=== PATIENT | male | born 1945 | race Asian ===

== ENCOUNTER 2018-03-08 23:23 | Emergency (ER) | payer BC ==
[~2018-03-08] VITALS: Ht 175.3 cm; Wt 72.6 kg
[2018-03-09] MEDS ORDERED: NS IV 1000 ML 1,000 ML IV ONE ×2 (00:05→01:12)
[2018-03-09] MEDS ORDERED: FAMOTIDINE 20MG/2ML IV (PEPCID) IV STA (00:05)
[2018-03-09] MEDS ORDERED: ONDANSETRON 4 MG/2 ML (SDV) Z0FRAN IVP ONE (00:15)
--- NOTE | 2018-03-09 00:20 | NUR ---
PT REPORTS HE NEEDS TO USE THE RESTROOM. PT REFUSES BEDSIDE COMMODE WELL BEDPAN. PT MADE AWARE OF RISKS OF USING RESTROOM WITH NECK INJURY AND ACCEPTED RISKS EXPLAINED. PT ASSISTED TO RESTROOM VIA W/C BY THIS RN. A&OX4.
[2018-03-09 00:24] LABS: BASOPHILS % (AUTO) 0 % (0-10); EOSINOPHILS % (AUTO) 0 % (0-10); HEMATOCRIT 43 % (40-54); HEMOGLOBIN 15.3 G/DL (13.3-17.7); LYMPHOCYTES # (AUTO) 0.8 X 10^3 (1.0-4.0); LYMPHOCYTES % (AUTO) 11 % (12-44); MEAN CORPUSCULAR HEMOGLOBIN 31 PG (25-34); MEAN CORPUSCULAR HGB CONC 35 G/DL (32-36); MEAN CORPUSCULAR VOLUME 88 FL (80-99); MEAN PLATELET VOLUME 9.7 FL (7.4-10.4); MONOCYTES # (AUTO) 0.6 X 10^3 (0.0-1.0); MONOCYTES % (AUTO) 9 % (0-12); NEUTROPHILS # (AUTO) 5.2 X 10^3 (1.8-7.8); NEUTROPHILS % (AUTO) 79 % (42-75); PLATELET COUNT 276 10^3/uL (130-400); RED CELL DISTRIBUTION WIDTH 12.7 % (10.0-14.5); WHITE BLOOD COUNT 6.7 10^3/uL (4.3-11.0)
[2018-03-09 00:36] LABS: ALANINE AMINOTRANSFERASE 25 U/L (0-55); ALKALINE PHOSPHATASE 49 U/L (40-136); BILIRUBIN,TOTAL 0.6 MG/DL (0.1-1.0); BUN/CREATININE RATIO 18; CALCIUM 10.6 MG/DL (8.5-10.1); CARBON DIOXIDE 22 MMOL/L (21-32); CHLORIDE 91 MMOL/L (98-107); CREATININE SERUM 1.63 MG/DL (0.60-1.30); GFR ESTIMATED 42; GLUCOSE 236 MG/DL (70-105); LIPASE 53 U/L (8-78); MAGNESIUM 2.1 MG/DL (1.8-2.4); SODIUM 127 MMOL/L (135-145); TOTAL PROTEIN 8.8 GM/DL (6.4-8.2)
--- NOTE | 2018-03-09 01:25 | NUR ---
PROVIDER IN ROOM TO CLEAR C-COLLAR.
--- NOTE | 2018-03-09 02:05 | ED GI ---
General Chief Complaint: Trauma-Non Activation Stated Complaint: VOMITING,DIARRHEA,PASSOUT IN BATHROOM-HEAD & NECK Nursing Triage Note: PT SEATED ON TOILET HAVING BM WHEN HE BECAME LH AND DIZZY. FELL FORWARD AND HIT FOREHEAD ON DOOR. Sepsis Screen: Possible Sepsis Risk Source of Information: Patient Exam Limitations: No Limitations History of Present Illness Date Seen by Provider: Mar 09, 2018 Time Seen by Provider: 00:05 Initial Comments This 72-year-old gentleman presents to the emergency room with nearly a week of nausea, vomiting, and watery diarrhea. Tonight while he was using the restroom he became lightheaded and lost control of his body. He fell forward striking his left forehead. He denies any loss of consciousness before or after falling. He denies any chest pain or palpitations. He still feels nauseated right now. He is placed in a c-collar on arrival because of neck pain as well. He is afebrile. He is alert and oriented. He initially ambulated into the ER on his own power. Location Injury Occurred: @ HOME IN BATHROOM Allergies and Home Medications Allergies Coded Allergies: No Known Drug Allergies (Unverified , 04/29/14) Home Medications Ondansetron 4 Mg Tab.rapdis, 4 MG SL Q4H PRN for NAUSEA/VOMITING Prescribed by: NEVAEH CLEMENTS on 03/09/18 0252 Patient Home Medication List Home Medication List Reviewed: Yes Review of Systems Review of Systems Constitutional: see HPI, weakness EENTM: See HPI, Other (Contusion over left brow) Respiratory: No Symptoms Reported Cardiovascular: See HPI Gastrointestinal: See HPI Genitourinary: No Symptoms Reported Musculoskeletal: see HPI Skin: see HPI Psychiatric/Neurological: No Symptoms Reported Endocrine: No Symptoms Reported Hematologic/Lymphatic: No Symptoms Reported Past Arhitpp-Igfbvn-Aeftfs Hx Past Med/Social Hx: Reviewed Nursing Past Med/Soc Hx Patient Social History Alcohol Use: Denies Use Recreational Drug Use: No Smoking Status: Never a Smoker 2nd Hand Smoke Exposure: No Recent Foreign Travel: No Contact w/Someone Who Travel: No Recent Infectious Disease Expo: No Recent Hopitalizations: No Physical Abuse: No Sexual Abuse: No Seasonal Allergies Seasonal Allergies: No Past Medical History Surgeries: Yes (FUSION OF C5 & C6 ) Tonsillectomy Respiratory: No Cardiac: Yes High Cholesterol, Hypertension Neurological: No Genitourinary: No Gastrointestinal: Yes Ulcer Musculoskeletal: No Endocrine: Yes Diabetes, Non-Insulin dep Are Your Blood Sugars Over 250: No HEENT: No Cancer: No Psychosocial: No Integumentary: No Blood Disorders: No Physical Exam Vital Signs Vital Signs - First Documented Capillary Refill : Less Than 3 Seconds Height/Weight/BMI Height: 5'9.00" Weight: 160lbs. oz. [id number]; BMI Method:Stated General Appearance: WD/WN, no apparent distress HEENT: PERRL/EOMI, normal ENT inspection, pharynx normal Neck: normal inspection, tender midline Respiratory: lungs clear, normal breath sounds, no respiratory distress, no accessory muscle use Cardiovascular: regular rate, rhythm, no edema, no murmur Gastrointestinal: normal bowel sounds, soft, distended (Very mild), tenderness (Minimal discomfort with palpation) Extremities: normal inspection, no pedal edema Neurologic/Psychiatric: patient accounts coordinator II-XII nml as tested, no motor/sensory deficits, alert, normal mood/affect, oriented x 3 Skin: normal color, warm/dry Progress/Results/Core Measures Results/Orders Lab Results Laboratory Tests Test 03/09/18 00:05 03/09/18 02:40 Range/Units White Blood Count 6.7 4.3-11.0 10^3/uL Red Blood Count 4.90 4.35-5.85 10^6/uL Hemoglobin 15.3 13.3-17.7 G/DL Hematocrit 43 40-54 % Mean Corpuscular Volume 88 80-99 FL Mean Corpuscular Hemoglobin 31 25-34 PG Mean Corpuscular Hemoglobin Concent 35 32-36 G/DL Red Cell Distribution Width 12.7 10.0-14.5 % Platelet Count 276 130-400 10^3/uL Mean Platelet Volume 9.7 7.4-10.4 FL Neutrophils (%) (Auto) 79 H 42-75 % Lymphocytes (%) (Auto) 11 L 12-44 % Monocytes (%) (Auto) 9 0-12 % Eosinophils (%) (Auto) 0 0-10 % Basophils (%) (Auto) 0 0-10 % Neutrophils # (Auto) 5.2 1.8-7.8 X 10^3 Lymphocytes # (Auto) 0.8 L 1.0-4.0 X 10^3 Monocytes # (Auto) 0.6 0.0-1.0 X 10^3 Eosinophils # (Auto) 0.0 0.0-0.3 10^3/uL Basophils # (Auto) 0.0 0.0-0.1 10^3/uL Sodium Level 127 L 135-145 MMOL/L Potassium Level 5.0 3.6-5.0 MMOL/L Chloride Level 91 L 98-107 MMOL/L Carbon Dioxide Level 22 21-32 MMOL/L Anion Gap 14 5-14 MMOL/L Blood Urea Nitrogen 29 H 7-18 MG/DL Creatinine 1.63 H 0.60-1.30 MG/DL Estimat Glomerular Filtration Rate 42 BUN/Creatinine Ratio 18 Glucose Level 236 H 70-105 MG/DL Calcium Level 10.6 H 8.5-10.1 MG/DL Corrected Calcium 8.5-10.1 MG/DL Magnesium Level 2.1 1.8-2.4 MG/DL Total Bilirubin 0.6 0.1-1.0 MG/DL Aspartate Amino Transf (AST/SGOT) 22 5-34 U/L Alanine Aminotransferase (ALT/SGPT) 25 0-55 U/L Alkaline Phosphatase 49 40-136 U/L Total Protein 8.8 H 6.4-8.2 GM/DL Albumin 5.0 H 3.2-4.5 GM/DL Lipase 53 8-78 U/L Urine Color YELLOW Urine Clarity CLEAR Urine pH 5 5-9 Urine Specific [place] 1.010 L 1.016-1.022 Urine Protein 1+ H NEGATIVE Urine Glucose (UA) 1+ H NEGATIVE Urine Ketones NEGATIVE NEGATIVE Urine Nitrite NEGATIVE NEGATIVE Urine Bilirubin NEGATIVE NEGATIVE Urine Urobilinogen NORMAL NORMAL MG/DL Urine Leukocyte Esterase NEGATIVE NEGATIVE Urine RBC (Auto) NEGATIVE NEGATIVE Urine RBC NONE /HPF Urine WBC NONE /HPF Urine Squamous Epithelial Cells 0-2 /HPF Urine Crystals NONE /LPF Urine Bacteria TRACE /HPF Urine Casts PRESENT /LPF Urine Hyaline Casts 0-2 H /LPF Urine Mucus NEGATIVE /LPF Urine Culture Indicated NO My Orders Orders - NEVAEH LUA MD Cbc With Automated Diff (03/09/18 00:05) Comprehensive Metabolic Panel (03/09/18 00:05) Lipase (03/09/18 00:05) Magnesium (03/09/18 00:05) Ua Culture If Indicated (03/09/18 00:05) Saline Lock/Iv-Start (03/09/18 00:05) Ct Head/Cervical Spine Wo (03/09/18 00:05) Abdomen, Flat & Upright/Decub (03/09/18 00:05) Ns Iv 1000 Ml (Sodium Chloride 0.9%) (03/09/18 00:05) Ondansetron Injection (Zofran Injectio (03/09/18 00:15) Famotidine Injection (Pepcid Injection) (03/09/18 00:05) Saline Lock/Iv-Start (03/09/18 01:12) Ns Iv 1000 Ml (Sodium Chloride 0.9%) (03/09/18 01:12) Ct Abd/Pelvis Wo(Kidney Stone) (03/09/18 01:14) Rx-Ondansetron Po (Rx-Zofran Po) (03/09/18 02:42) Medications Given in ED Vital Signs/I&O 03/08/18 03/08/18 03/09/18 23:34 23:34 03:15 Temp 96.5 96.5 96.9 Pulse 96 96 91 Resp 21 21 18 B/P (MAP) 135/68 (90) 135/68 (90) 108/61 (77) Pulse Ox 97 97 99 O2 Delivery Room Air Room Air Room Air Blood Pressure Mean: 90 Progress Progress Note : Progress Note Patient was seen and evaluated. C-collar remained on until CT C-spine was cleared. No significant acute injuries were found on imaging. KUB and upright x-ray of the abdomen was obtained. I was concerned about multiple air-fluid levels and a significant amount of stomach contents despite patient's vomiting and diarrhea. I was concerned this may represent a developing small bowel obstruction. I discussed CT of the abdomen and pelvis with patient who was agreeable. CT was obtained and showed no clear evidence of bowel obstruction. Patient's nausea was treated with Zofran and Pepcid. He received 2 L of IV normal saline. He was able to urinate before discharge. See discharge instructions for further discussion with the patient. Encourage patient to follow-up with Dr. Restrepo within the week to reassess his renal function. Diagnostic Imaging Diagonstic Imaging: CT Plain Films/CT/US/NM/MRI: c-spine, head Comments CT [facility] report reviewed. There is a hematoma above the left brow. No other acute injuries were identified. Reviewed: Reviewed by Me Diagonstic Imaging: Xray Plain Films/CT/US/NM/MRI: abdomen, pelvis Comments Multiple air-fluid levels noted on the upright x-ray film. CT was ordered to further evaluate for possible bowel obstruction. X-ray was viewed by me. Report not yet available. Diagonstic Imaging: CT Plain Films/CT/US/NM/MRI: abdomen, pelvis Comments CT abdomen and pelvis viewed by me and [facility] report reviewed. There are fat- containing inguinal hernias bilaterally. There was no evidence of bowel obstruction or focal intra-abdominal inflammatory processes. Departure Impression Primary Impression: Nausea vomiting and diarrhea Additional Impressions: Gastroenteritis Acute renal insufficiency Syncope, near Contusion of forehead Qualified Codes: S00.83XA - Contusion of other part of head, initial encounter Hyponatremia Disposition: HOME, SELF-CARE Condition: Improved Departure-Patient Inst. Decision time for Depature: 02:40 Referrals: NOBLE RESTREPO MD (PCP/Family) Primary Care Physician Patient Instructions: Diarrhea in Adolescents and Adults, Nausea and Vomiting, Adult Add. Discharge Instructions: Start with a clear liquid diet for the next 24 hours. If clear liquids are tolerated well, then gradually advance diet with small quantities of bland food as tolerated. You may treat pain with Tylenol (acetaminophen). Treat nausea and vomiting with Zofran (ondansetron) dissolved under the tongue every 4 hours as needed. Return to the emergency room if symptoms are worsening despite these measures. Follow-up with your primary care provider within the next 1-2 weeks. All discharge instructions reviewed with patient and/or family. Voiced understanding. Scripts Ondansetron (Ondansetron Odt) 4 Mg Tab.rapdis 4 MG SL Q4H PRN for NAUSEA/VOMITING, #10 TAB Prov: NEVAEH LUA MD 03/09/18 Copy Copies To 1: NOBLE RESTREPO MD, JOSHUA T MD Mar 09, 2018 02:04
[2018-03-09] MEDS ORDERED: RX-ONDANSETRON 4 MG ODT (ZOFRAN) PPK #4 SL STA (02:42)
[2018-03-09 02:50] LABS: BILIRUBIN,URINE NEGATIVE (NEGATIVE); CLARITY,URINE CLEAR; COLOR,URINE YELLOW; GLUCOSE, URINE (UA) 1+ (NEGATIVE); KETONES,URINE NEGATIVE (NEGATIVE); LEUKOCYTE ESTERASE ,URINE NEGATIVE (NEGATIVE); NITRITE,URINE NEGATIVE (NEGATIVE); PH,URINE 5 (5-9); PROTEIN,URINE 1+ (NEGATIVE); UROBILINOGEN,URINE NORMAL (NORMAL)
[2018-03-09] MEDS ORDERED: ONDA4TAB11 SL (02:52)
[2018-03-09 02:58] LABS: BACTERIA,URINE TRACE /HPF; HYALINE CASTS, URINE 0-2 /LPF; SQUAMOUS EPITHELIAL CELL,UR 0-2 /HPF
[2018-03-09 03:15] VITALS: BP 108/61
--- NOTE | 2018-03-09 05:59 | Diagnostic Imaging Report ---
PROCEDURE: CT head and CT cervical spine without contrast. TECHNIQUE: Multiple contiguous axial images were obtained through the brain and cervical spine without the use of intravenous contrast. Sagittal and coronal reformations through the cervical spine were then performed. INDICATION: Near syncope. Fall. Head injury. COMPARISON: MRI brain without and with IV contrast 04/29/2014. FINDINGS: CT head: Scalp contusion overlying the left frontal bone. No fractures. The paranasal sinuses and mastoids are clear. No intracranial hemorrhage, mass effect, hydrocephalus or extra-axial fluid collections. Moderate generalized cerebral and cerebellar parenchymal volume loss. CT cervical spine: Normal alignment. Vertebral body heights preserved. No fractures. Anterior fusion with interbody grafting at C5-C7. Hardware components are intact. No evidence of loosening. No high-grade spinal canal narrowing on this non-intrathecal contrast exam. IMPRESSION: No acute intracranial or cervical spine CT findings. Dictated by: Dictated on workstation # [id number]
--- NOTE | 2018-03-09 06:27 | Diagnostic Imaging Report ---
PROCEDURE: CT urinary tract, rule out kidney stone. TECHNIQUE: Multiple contiguous axial images were obtained through the abdomen and pelvis without the use of intravenous contrast. INDICATION: Nausea, vomiting, and diarrhea x1 week. COMPARISON: Abdominal radiographs 03/09/2018. FINDINGS: The lung bases are clear. The liver, gallbladder, pancreas, spleen, adrenals, kidneys, collecting systems and bladder are negative on this noncontrast exam. Enlarged prostate. Bilateral fat-containing inguinal hernias. No evidence of appendicitis. No free intraperitoneal air or fluid. No evidence of bowel obstruction or inflammation on this noncontrast exam. No acute osseous findings. IMPRESSION: No acute CT findings in the abdomen or pelvis on this noncontrast exam. Dictated by: Dictated on workstation # [id number]
--- NOTE | 2018-03-09 06:50 | Diagnostic Imaging Report ---
INDICATION: Nausea, emesis and diarrhea. FINDINGS: Supine and upright views of the abdomen reveal moderate amount of gas in particulate matter in the stomach. There are scattered air-fluid levels throughout small and large bowel. No definite transition point is seen to indicate an obstruction. No free intraperitoneal gas or pneumatosis is identified. IMPRESSION: Nonspecific bowel gas pattern may reflect diffuse adynamic ileus. Short-term followup study would be useful to document resolution. Dictated by: Dictated on workstation # [id number]
== END 2018-03-09 03:15 | disposition home or self-care (01) ==
LOC: EDUNIT# 23:23 → ER 23:26
DX: S00.83XA Contusion of other part of head, initial encounter (principal); K52.9 Noninfective gastroenteritis and colitis, unspecified; N28.9 Disorder of kidney and ureter, unspecified; R55 Syncope and collapse; E87.1 Hypo-osmolality and hyponatremia; E78.00 Pure hypercholesterolemia, unspecified; I10 Essential (primary) hypertension; E11.9 Type 2 diabetes mellitus without complications; Z87.19 Personal history of other diseases of the digestive system; Z98.1 Arthrodesis status; Z90.89 Acquired absence of other organs; W01.198A Fall on same level from slipping, tripping and stumbling with subsequent striking against other object, initial encounter; Y92.002 Bathroom of unspecified non-institutional (private) residence as the place of occurrence of the external cause
CPT/HCPCS: 36415; 70450; 72125; 74019; 74176; 80053; 81000; 83690; 83735; 85025; 96361; 96374; 96375

== ENCOUNTER → 2019-03-02 | Outpatient (CLI) | payer BC ==
[~2019-03-02] MED LIST: ONDA4TAB11 SL
--- NOTE | 2019-03-02 12:57 | Diagnostic Imaging Report ---
INDICATION: Cough. TIME OF EXAM: 12:29 p.m. COMPARISON: No prior studies are available for comparison. FINDINGS: The heart size is normal. The pulmonary vascularity is unremarkable. The lungs are clear. No infiltrate, effusion or pneumothorax is detected. Postop changes in the lower cervical spine are noted. IMPRESSION: No acute cardiopulmonary process is detected. Dictated by: Dictated on workstation # [id number]
== END ==
LOC: RAD 12:12
DX: R05 Cough (principal)
CPT/HCPCS: 71046

== ENCOUNTER → 2019-04-12 | Outpatient (CLI) | payer BC ==
[~2019-04-12] MED LIST changes: +HOLD METFORMIN - RECEIVED CONTRAST 20 ML VIAL IV SCH; +IOHEXOL 350 MG/ML 100 ML (OMNIPAQUE 350) VIAL IV ONE; +NS 100 ML (IVPB) BAG IV ONE
[2019-04-12 08:35] LABS: CREATININE SERUM 1.27 MG/DL (0.60-1.30)
--- NOTE | 2019-04-12 09:34 | Diagnostic Imaging Report ---
EXAMINATION: CT Chest with intravenous contrast. TECHNIQUE: Multiple contiguous axial images were obtained through the chest after the uneventful administration of intravenous contrast. All CT scans use one or more of the following dose optimizing techniques: automated exposure control, MA and/or KvP adjustment based on a patient size and exam type, or iterative reconstruction. HISTORY: COUGH,ALLERGIC RHINITIS COMPARISON: None available. FINDINGS: There is no edema or pneumonia. No pleural effusion. No pneumothorax. No suspicious nodules. There is bronchial dilation mucous plugging involving the posterior basilar segment of the right lower lobe. Small amount of central atelectasis is seen in the right middle lobe. Heart size is normal. No pericardial effusion. Aorta is normal in caliber. There is no axillary or supraclavicular lymphadenopathy. There is no mediastinal lymphadenopathy. There are mild coronary artery calcifications. Limited views of the upper abdomen are unremarkable. There are no suspicious osseus lesions. IMPRESSION: 1. Mild mucous plugging and bronchial dilation in the posterior basilar segment of the right lower lobe, no suspicious nodules. Dictated by: Dictated on workstation # [id number]
== END ==
LOC: RAD 07:39
PROVIDERS: ATTEND Nurse Practitioner Family
DX: J30.9 Allergic rhinitis, unspecified (principal); R05 Cough; J98.09 Other diseases of bronchus, not elsewhere classified
CPT/HCPCS: 36415; 71260; 82565; 84520

== ENCOUNTER 2019-04-14 05:40 | Outpatient (CLI) | payer BC ==
[~2019-04-14] VITALS: Ht 175.6 cm; Wt 77.7 kg
[~2019-04-14 05:40] MED LIST changes: -HOLD METFORMIN - RECEIVED CONTRAST 20 ML VIAL IV SCH; -IOHEXOL 350 MG/ML 100 ML (OMNIPAQUE 350) VIAL IV ONE; -NS 100 ML (IVPB) BAG IV ONE
== END 2019-04-14 15:49 ==
LOC: PREOP 05:40
PROVIDERS: ATTEND Internal Medicine Critical Care Medicine
DX: Z01.818 Encounter for other preprocedural examination (principal)

== ENCOUNTER → 2019-04-19 | Outpatient (CLI) | payer BC ==
[~2019-04-19] MED LIST changes: +RT-ALBUTEROL SULF 2.5 MG/3 ML PRE-MIX VIAL INH ONE; +RT-ALBUTEROL SULF 2.5 MG/3 ML PRE-MIX VIAL ONE
== END ==
LOC: RT 13:11
PROVIDERS: ATTEND Nurse Practitioner Family
DX: J30.9 Allergic rhinitis, unspecified (principal)
CPT/HCPCS: 94060; 94726; 94729

== ENCOUNTER 2019-04-30 15:45 | Outpatient (CLI) | payer BC ==
[~2019-04-30 15:45] MED LIST changes: -RT-ALBUTEROL SULF 2.5 MG/3 ML PRE-MIX VIAL INH ONE; -RT-ALBUTEROL SULF 2.5 MG/3 ML PRE-MIX VIAL ONE
== END 2019-04-30 16:42 | disposition home or self-care (01) ==
LOC: SLEEP 15:45
PROVIDERS: ATTEND Nurse Practitioner Family
DX: G47.10 Hypersomnia, unspecified (principal); J30.9 Allergic rhinitis, unspecified; K21.9 Gastro-esophageal reflux disease without esophagitis

== ENCOUNTER → 2019-11-17 | Outpatient (CLI) | payer BC ==
--- NOTE | 2019-11-17 12:45 | Diagnostic Imaging Report ---
PROCEDURE: MR imaging cervical spine without contrast. TECHNIQUE: Multiplanar, multisequence MR imaging of the cervical spine was performed without contrast. INDICATION: Neck and right shoulder pain Discectomy with anterior fusion extends from C5 through C7. Overall cervical spinal curvature and alignment are unremarkable. There is no evidence of focal disc protrusion or significant stenosis. No marrow signal abnormality is identified to indicate fracture and there is no evidence of paraspinous fluid collection or hematoma. No cervical spinal cord signal abnormality is identified. IMPRESSION: Unremarkable cervical spine MRI post discectomy with anterior fusion from C5 through C7. Dictated by: Dictated on workstation # [id number]
== END ==
LOC: RAD 09:31
PROVIDERS: ATTEND Physician Assistant
DX: M43.22 Fusion of spine, cervical region (principal); M54.12 Radiculopathy, cervical region; Z98.1 Arthrodesis status
CPT/HCPCS: 72141

== ENCOUNTER → 2022-04-16 | Outpatient (CLI) | payer BC ==
--- NOTE | 2022-04-16 15:33 | Diagnostic Imaging Report ---
EXAMINATION: Chest 2 view HISTORY: Cough COMPARISON: 04/21/2019 FINDINGS: The lungs are clear without edema or pneumonia. No pleural effusion or pneumothorax. Heart size is normal. IMPRESSION: 1. Clear lungs. Dictated by: Dictated on workstation # [id number]
== END ==
LOC: RAD 11:31
PROVIDERS: ATTEND Nurse Practitioner Family
DX: R05.9 Cough, unspecified (principal)
CPT/HCPCS: 71046

== ENCOUNTER → 2022-07-30 | Outpatient (CLI) | payer BC ==
--- NOTE | 2022-07-30 18:31 | Diagnostic Imaging Report ---
INDICATION: Left-sided chest pain, fall. Time of Exam: 11:17 AM Correlation is made with prior chest from 04/16/2022. Heart size is normal. Lungs are clear. No infiltrates are seen. There is no effusion or pneumothorax. Postop changes lower cervical spine are noted. IMPRESSION: No acute cardiopulmonary process is detected. Dictated by: Dictated on workstation # [id number]
== END ==
LOC: RAD 10:54
PROVIDERS: ATTEND Nurse Practitioner Family
DX: R07.9 Chest pain, unspecified (principal)
CPT/HCPCS: 71046; 71100

== ENCOUNTER → 2023-01-06 | Outpatient (CLI) | payer BC ==
[~2023-01-06] MED LIST changes: +GADOTERATE 0.5 MMOL/ML (CLARISCAN) 20 ML VIAL IV ONE
--- NOTE | 2023-01-06 15:09 | Diagnostic Imaging Report ---
PROCEDURE: MR imaging of the brain with and without contrast. TECHNIQUE: Multiplanar, multisequence MR imaging of the brain was performed with and without contrast. INDICATION: Right upper extremity weakness. COMPARISON: Correlation is made with the prior MRI from 04/29/2014. FINDINGS: The ventricles and sulci are prominent, consistent with cerebral volume loss. There is moderate periventricular and subcortical white matter changes, consistent with chronic microvascular ischemia. No diffusion restriction is identified to suggest acute ischemia. No abnormal enhancement following contrast administration is identified. The corpus callosum is unremarkable. The sella and parasellar structures are stable and without evidence of an acute feature. IMPRESSION: Changes of chronic microvascular ischemia. No acute intracranial process is detected. Dictated by: Dictated on workstation # [id number]
== END ==
LOC: RAD 13:13
PROVIDERS: ATTEND Internal Medicine
DX: I67.82 Cerebral ischemia (principal)
CPT/HCPCS: 70553

== ENCOUNTER → 2023-01-10 | Outpatient (CLI) | payer BC ==
[~2023-01-10] MED LIST changes: +ASPI-999 PO; +ATOR10TA PO; +BENZ100C18 PO; +CLOP-31 PO; +EZET10TA83 PO; +FLUT1BLS15 INH; -GADOTERATE 0.5 MMOL/ML (CLARISCAN) 20 ML VIAL IV ONE; +IPR14IN INH; +IRBE150T23 PO; +LEVO5TAB28 PO; +METF-399 PO; +MIRA25TA PO; +MTP25TSR PO; +SITA100T12 PO; +TMSL.4C PO; +TRIA1CAP84 PO
--- NOTE | 2023-01-10 17:16 | Diagnostic Imaging Report ---
INDICATION: FLANK PAIN, URINARY RETENTION TECHNIQUE: Multiple real-time grayscale sonographic images were obtained of the kidneys. CORRELATION: None FINDINGS: RIGHT KIDNEY: 9.8 x 4.5 x 5.7 cm. LEFT KIDNEY: 10.8 x 5 x 5.8 cm. Probable small cyst superior pole left kidney 1.6 cm. Renal parenchyma otherwise unremarkable. No definitive calcification or hydronephrosis. URINARY BLADDER: There is presence of bilateral ureteral jets. Urinary bladder appearing unremarkable. Prevoid Volume: 382 mL. Postvoid Volume: 180 mL. Prostate gland appears enlarged with distortion at the bladder base measuring 3 x 3.5 cm. IMPRESSION: 1. Unremarkable renal sonogram. 2. Urinary bladder retention with an enlarged prostate gland. Raises concern for bladder outlet obstruction. Dictated by: Dictated on workstation # [id number]
== END ==
LOC: RAD 10:39
PROVIDERS: ATTEND Nurse Practitioner
DX: R10.9 Unspecified abdominal pain (principal); R33.9 Retention of urine, unspecified
CPT/HCPCS: 76770

== ENCOUNTER 2023-01-27 09:58 | Inpatient (IN) | payer MEDICARE, BC ==
[~2023-01-27] VITALS: Ht 178 cm; Wt 74.8 kg
[~2023-01-27 09:58] MED LIST changes: -ASPI-999 PO; -ATOR10TA PO; -BENZ100C18 PO; -CLOP-31 PO; -EZET10TA83 PO; -FLUT1BLS15 INH; -IPR14IN INH; -IRBE150T23 PO; -LEVO5TAB28 PO; -METF-399 PO; -MIRA25TA PO; -MTP25TSR PO; -SITA100T12 PO; -TMSL.4C PO; -TRIA1CAP84 PO
--- NOTE | 2023-01-27 10:14 | ED General ---
General Stated Complaint: STROKE-LIKE SYMPTOMS Source of Information: Patient, Family () Exam Limitations: Other (patient curerntly aphasic) History of Present Illness Date Seen by Provider: Jan 27, 2023 Time Seen by Provider: 09:59 Initial Comments 77-year-old male presents to the emergency department today for confusion. His states he has been currently being seen for possible dementia however at baseline he is conversive normally. She states that during the holiday he even drove to the store himself and got chicken and meat jorge for everyone. Today he got out of bed and was in the shower and fell, hitting his head. She tried to get him up but he seemed confused. He was still talking somewhat at that olga e. She got him up and he fell once again, does not know if he hit his head at that time. Since that time he has been aphasic. She did get him up to walk him to the car. On arrival the patient is completely aphasic and cannot answer any questions, seems confused and is not really following commands. His does tell me that they have been working on dosing of his Toprol, recently decreasing from 50 to 25 mg. She states he has been hypertensive since the change. He is not on any blood thinning medications. All other systems reviewed and negative except documented per HPI. Voice recognition software was used to help create this chart Allergies and Home Medications Allergies Coded Allergies: No Known Drug Allergies (Unverified , 04/29/14) Patient Home Medication List Home Medication List Reviewed: Yes Review of Systems Review of Systems Constitutional: see HPI Past Krlzder-Qcazil-Gxixuf Hx Patient Social History Tobacco Use?: No Use of E-Cig and/or Vaping dev: No Substance use?: No Alcohol Use?: No Seasonal Allergies Seasonal Allergies: Yes Past Medical History Surgeries: Yes (FUSION OF C5 & C6 ) Tonsillectomy Respiratory: Yes (cough) Cardiac: Yes High Cholesterol, Hypertension Neurological: No Genitourinary: No Gastrointestinal: Yes Ulcer Musculoskeletal: No Endocrine: Yes Diabetes, Non-Insulin dep HEENT: No Cancer: No Psychosocial: No Integumentary: No Blood Disorders: No Physical Exam Vital Signs Vital Signs - First Documented 01/27/23 10:15 Temp 36.6 Pulse 58 Resp 18 B/P (MAP) 158/87 (110) Pulse Ox 99 O2 Delivery Room Air Capillary Refill : Height, Weight, BMI Height: 5'9.00" Weight: 160lbs. oz. 72.251609of; 25.19 BMI Method:Stated General Appearance: No Apparent Distress, WD/WN, Other (Small abrasion to the left anterior forehead) Eyes: Bilateral Eye Normal Inspection, Bilateral Eye PERRL, Bilateral Eye Other (Unable to check extraocular movements as the patient is noncompliant with the exam) HEENT: TMs Normal, Normal ENT Inspection, Pharynx Normal Neck: Full Range of Motion, Normal Inspection, Non Tender, Supple Respiratory: Chest Non Tender, Lungs Clear, Normal Breath Sounds, No Accessory Muscle Use, No Respiratory Distress Cardiovascular: Regular Rate, Rhythm, No Murmur, Normal Peripheral Pulses Gastrointestinal: Normal Bowel Sounds, No Organomegaly, Non Tender, Soft Extremity: Normal Capillary Refill, Normal Inspection, Normal Range of Motion, Non Tender, No Calf Tenderness Neurologic/Psychiatric: Other (Neuro exam is quite difficult as the patient is not following commands. He does seem to move all extremities spontaneously however he would not get out of the van for the wheelchair we had to lift him to get him into the bed or out of the car. He has no obvious focal neurodeficits but he is aphasic at this time) Skin: Normal Color, Warm/Dry, Other (Forehead abrasion as described above) Progress/Results/Core Measures Suspected Sepsis SIRS Temperature: Pulse: Respiratory Rate: Laboratory Tests 01/27/23 11:05: White Blood Count 5.4 Blood Pressure / Mean: Laboratory Tests 01/27/23 11:05: Creatinine 1.33H, INR Comment 1.0, Platelet Count 172, Total Bilirubin 1.0 Results/Orders Lab Results Laboratory Tests Test 01/27/23 10:12 01/27/23 11:05 Range/Units Glucometer 169 H 70-110 MG/DL White Blood Count 5.4 4.3-11.0 10^3/uL Red Blood Count 4.24 L 4.30-5.52 10^6/uL Hemoglobin 13.5 13.3-17.7 g/dL Hematocrit 37 L 40-54 % Mean Corpuscular Volume 86 80-99 fL Mean Corpuscular Hemoglobin 32 25-34 pg Mean Corpuscular Hemoglobin Concent 37 H 32-36 g/dL Red Cell Distribution Width 11.9 10.0-14.5 % Platelet Count 172 130-400 10^3/uL Mean Platelet Volume 9.7 9.0-12.2 fL Immature Granulocyte % (Auto) 0 % Neutrophils (%) (Auto) 74 42-75 % Lymphocytes (%) (Auto) 17 12-44 % Monocytes (%) (Auto) 9 0-12 % Eosinophils (%) (Auto) 1 0-10 % Basophils (%) (Auto) 0 0-10 % Neutrophils # (Auto) 4.0 1.8-7.8 10^3/uL Lymphocytes # (Auto) 0.9 L 1.0-4.0 10^3/uL Monocytes # (Auto) 0.5 0.0-1.0 10^3/uL Eosinophils # (Auto) 0.0 0.0-0.3 10^3/uL Basophils # (Auto) 0.0 0.0-0.1 10^3/uL Immature Granulocyte # (Auto) 0.0 0.0-0.1 10^3/uL Prothrombin Time 13.8 12.2-14.7 SEC INR Comment 1.0 0.8-1.4 Sodium Level 120 *L 135-145 MMOL/L Potassium Level 4.5 3.6-5.0 MMOL/L Chloride Level 85 L 98-107 MMOL/L Carbon Dioxide Level 24 21-32 MMOL/L Anion Gap 11 5-14 MMOL/L Blood Urea Nitrogen 16 7-18 MG/DL Creatinine 1.33 H 0.60-1.30 MG/DL Estimat Glomerular Filtration Rate 55 BUN/Creatinine Ratio 12 Glucose Level 194 H 70-105 MG/DL Calcium Level 9.0 8.5-10.1 MG/DL Corrected Calcium 8.8 8.5-10.1 MG/DL Total Bilirubin 1.0 0.1-1.0 MG/DL Aspartate Amino Transf (AST/SGOT) 22 5-34 U/L Alanine Aminotransferase (ALT/SGPT) 35 0-55 U/L Alkaline Phosphatase 38 L 40-136 U/L Total Protein 7.3 6.4-8.2 GM/DL Albumin 4.3 3.2-4.5 GM/DL My Orders Orders - KALLIE CHUNG DO Comprehensive Metabolic Panel (01/27/23 10:10) Protime With Inr (01/27/23 10:10) Ct Head Wo (01/27/23 10:10) Cbc And Automated Diff (01/27/23 10:10) Ct Angio Head/Neck (01/27/23 10:49) Iohexol Injection (Omnipaque 350 Mg/Ml 1 (01/27/23 11:15) Received Contrast (Hold Metformin- Contr (01/27/23 11:15) Ns (Ivpb) 100 Ml (Sodium Chloride 0.9% 1 (01/27/23 11:15) Ns Iv 1000 Ml (Ns Iv 1000 Ml) (01/27/23 11:45) Ed Admission (Communication) (01/27/23 12:08) Medications Given in ED Current Medications Medications Dose Ordered Sig/Lilo Route Start Time Stop Time Status Last Admin Dose Admin Iohexol 75 ml ONCE ONCE IV 01/27/23 11:15 01/27/23 11:16 DC 01/27/23 11:19 75 ML Sodium Chloride 100 ml ONCE ONCE IV 01/27/23 11:15 01/27/23 11:16 DC 01/27/23 11:19 80 ML Vital Signs/I&O 01/27/23 10:15 Temp 36.6 Pulse 58 Resp 18 B/P (MAP) 158/87 (110) Pulse Ox 99 O2 Delivery Room Air Capillary Refill : Critical Care Note Critical Care Total Time (minutes) 90 Departure Communication (Admissions) Patient is hemodynamically stable. He will spontaneously move his arms and legs but he will not follow any commands. Grossly has no focal neurologic deficits outside of some aphasia. He is tracking with his eyes but does not seem to understand what you are telling him. Initial CT scan of his head is negative for any acute intracranial abnormalities. Obtained a CT angiography of his head and neck which shows some mild stenosis in his neck region but no large vessel or focal occlusions. He does have significant hyponatremia with a sodium of 120. I spoke with his and he has a history of hyponatremia however his baseline seems to be between [id number] and this is new for him. This is very likely the cause of his aphasia and confusion at this time. He is slightly hypertensive but otherwise hemodynamically stable. Labs are otherwise reassuring. I spoke with Dr. Raymundo accepts the patient in admission. I have ordered him normal saline at 125 cc/h will defer further sodium management and testing to Dr. Breanne. Impression Primary Impression: Hyponatremia Additional Impression: Confusion Disposition: ADMITTED INPATIENT Condition: Stable Departure-Patient Inst. Referrals: PAULINO CORONA MD (PCP/Family) Primary Care Physician KALLIE CHUNG DO Jan 27, 2023 10:14
--- NOTE | 2023-01-27 11:02 | Diagnostic Imaging Report ---
PROCEDURE: CT head without contrast. TECHNIQUE: Multiple contiguous axial images were obtained through the brain without the use of intravenous contrast. Auto Exposure Controls were utilized during the CT exam to meet ALARA standards for radiation dose reduction. INDICATION: Aphasia. Head injury. Fall. COMPARISON: MRI brain of 01/06/2023. FINDINGS: Moderate generalized volume loss. No intracranial hemorrhage, mass effect, hydrocephalus or extra-axial fluid collections. No CT evidence of acute territorial infarction. Stable small region of encephalomalacia in the right occipital lobe. Osseous structures are intact. Paranasal sinuses and mastoids are clear. IMPRESSION: No acute intracranial CT findings. Dictated by: Dictated on workstation # [id number]
[2023-01-27 11:10] LABS: BASOPHILS % (AUTO) 0 % (0-10); EOSINOPHILS % (AUTO) 1 % (0-10); HEMATOCRIT 37 % (40-54); HEMOGLOBIN 13.5 g/dL (13.3-17.7); LYMPHOCYTES # (AUTO) 0.9 10^3/uL (1.0-4.0); LYMPHOCYTES % (AUTO) 17 % (12-44); MEAN CORPUSCULAR HEMOGLOBIN 32 pg (25-34); MEAN CORPUSCULAR HGB CONC 37 g/dL (32-36); MEAN CORPUSCULAR VOLUME 86 fL (80-99); MEAN PLATELET VOLUME 9.7 fL (9.0-12.2); MONOCYTES # (AUTO) 0.5 10^3/uL (0.0-1.0); MONOCYTES % (AUTO) 9 % (0-12); NEUTROPHILS % (AUTO) 74 % (42-75); PLATELET COUNT 172 10^3/uL (130-400); WHITE BLOOD COUNT 5.4 10^3/uL (4.3-11.0)
[2023-01-27] MEDS ORDERED: NS 100 ML (IVPB) BAG IV ONE (11:15)
[2023-01-27] MEDS ORDERED: IOHEXOL 350 MG/ML 100 ML (OMNIPAQUE 350) VIAL IV ONE (11:15)
[2023-01-27] MEDS ORDERED: HOLD METFORMIN - RECEIVED CONTRAST 20 ML VIAL IV SCH (11:15)
[2023-01-27 11:25] LABS: PROTHROMBIN TIME PATIENT 13.8 SEC (12.2-14.7)
[2023-01-27 11:28] LABS: ALBUMIN 4.3 GM/DL (3.2-4.5); POTASSIUM 4.5 MMOL/L (3.6-5.0)
[2023-01-27 11:31] LABS: TOTAL PROTEIN 7.3 GM/DL (6.4-8.2)
[2023-01-27 11:34] LABS: CREATININE SERUM 1.33 MG/DL (0.60-1.30)
[2023-01-27] MEDS ORDERED: NS IV 1000 ML 1,000 ML IV SCH ×2 (11:45→13:15)
--- NOTE | 2023-01-27 11:52 | Diagnostic Imaging Report ---
PROCEDURE: CT angiography of the head and CT angiography of the neck with and without contrast. TECHNIQUE: Contiguous noncontrast images were obtained from the skull base through the vertex. After intravenous contrast administration, helical CT angiography of the neck was performed. Source data was reformatted into 3D MIP projections. Delayed post contrast acquisition was also obtained. Auto Exposure Controls were utilized during the CT exam to meet ALARA standards for radiation dose reduction. INDICATION: Altered mental status. Aphasia. Trauma. Falls. COMPARISON: CT head without contrast 01/27/2023. FINDINGS: Postcontrast head CT continues to demonstrate no CT evidence of a large territorial infarction or hemorrhage. No hydrocephalus or extra-axial fluid collections. No abnormal intracranial enhancement. CTA demonstrates a left common carotid originating from the innominate. Moderate narrowing of the right anterior cerebral artery below the level of the corpus callosum. There is also moderate scattered narrowing of the left posterior cerebral artery. No large vessel occlusion. The basilar, bilateral vertebral, common carotid, internal carotid, middle cerebral, left anterior cerebral, and right posterior cerebral arteries demonstrate no high-grade narrowing, aneurysm or dissection. The dural venous sinuses are normally opacified. No evidence of an arterial venous anomaly. Anterior fusion with interbody grafting at C5-C7. No evidence of hardware failure. No acute osseous findings. The visualized paravertebral soft tissues demonstrate no acute findings. The lung apices are clear. IMPRESSION: 1. No large vessel occlusion. 2. Moderate narrowing of the right anterior cerebral and left posterior cerebral arteries. 3. No evidence of aneurysm or dissection. Dictated by: Dictated on workstation # [id number]
[2023-01-27] MEDS ORDERED: MELATONIN 3 MG TABLET PO PRN (13:15)
[2023-01-27] MEDS ORDERED: CALCIUM CARBONATE 500 MG CHEW TABLET PO PRN (13:15)
[2023-01-27] MEDS ORDERED: BISACODYL 10 MG SUPPOSITORY PR PRN (13:15)
[2023-01-27] MEDS ORDERED: ONDANSETRON INJECTION 4 MG/2 ML (SDV) IV PRN (13:15)
[2023-01-27] MEDS ORDERED: ACETAMINOPHEN 325 MG TABLET PO PRN (13:15)
--- NOTE | 2023-01-27 13:37 | Physical Therapy Progress Note ---
Therapy Progress Note Attempted to see patient for PT initial evaluation. Nurse requested hold till am as patient is still very confused and currently resting. Will attempt evaluation in the am and progress per patient tolerance. SERA SANTILLAN PT Jan 27, 2023 13:37
[2023-01-27 13:55] VITALS: BP 158/92
[2023-01-27] MEDS ORDERED: RT-ALBUTEROL SULF 2.5 MG/3 ML PRE-MIX VIAL INH PRN (14:00)
--- NOTE | 2023-01-27 14:10 | History & Physical-Hospitalist ---
KATHLEEN FLETCHER 01/27/23 1410: History of Present Illness HPI/Chief Complaint Pt is a 77 y/o male with a hx of mild dementia who presents to the ER with c onfusion. Pt is unable to provide a hx d/t confusion. His reports that he fell in the shower today and hit his head. He appeared confused afterwards but was able to keep talking. Pt fell again and was aphasic since then until he came to the ER. In ER, unable to answer questions, listen to commands. states that he recently had his metroprolol dose decreased from 50 to 25 mg PO/d for his HTN. Pt is not on any blood thinners. states that he does have a hx of hyponatremia with baseline 127-129. Source: family, RN/, EMS notes reviewed Exam Limitations: clinical condition Date Seen 01/27/23 Time Seen by a Provider: 14:06 Attending Physician Jose Murray MD PCP Admitting Physician: Ada San MD Attending Physician: Ada San MD Referring Physician Date of Admission Jan 27, 2023 at 12:51 Home Medications & Allergies Home Medications Reviewed patient Home Medication Reconciliation performed by pharmacy medication reconciliations robotic technician and/or nursing. Patients Allergies have been reviewed. Allergies Allergies Coded Allergies No Known Drug Allergies (Unverified04/29/14) Past Bnwlqgs-Eznzsl-Axsvte Hx Patient Social History Marrital Status: Tobacco Use?: No Smoking Status: Never a Smoker Smokeless Tobacco Frequency: Never a User Use of E-Cig and/or Vaping dev: No Substance use?: No Alcohol Use?: Yes Alcohol type: Wine Alcohol Frequency: Rarely Pt feels they are or have been: No Immunizations Up To Date Date of Influenza Vaccine: Dec 01, 2018 Date of Pneumonia Vaccine: Jan 01, 2019 Seasonal Allergies Seasonal Allergies: Yes Current Status Advance Directives: No Communicates: Verbally Primary Language: Mauritanian Preferred Spoken Language: Mauritanian Is interpretation needed?: No Implanted or Applied Medical D: None Past Medical History Surgeries: Tonsillectomy High Cholesterol, Hypertension Dementia Ulcer 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 oz. 72.630075cz; 24.93 BMI Method:Stated General Appearance: No Apparent Distress, WD/WN Eyes: Bilateral Eye Normal Inspection Neck: Normal Inspection, Non Tender Respiratory: Chest Non Tender, No Accessory Muscle Use, No Respiratory Distress, Crackles Cardiovascular: Regular Rate, Rhythm, No Murmur, Normal Peripheral Pulses Gastrointestinal: Normal Bowel Sounds, Non Tender, Soft Extremity: Normal Capillary Refill, Normal Inspection, No Calf Tenderness Neurologic/Psychiatric: No Oriented x3; Disoriented Skin: Normal Color, Warm/Dry Results Results/Procedures Labs Laboratory Tests 01/27/23 11:05 Patient resulted labs reviewed. Imaging: Reviewed Imaging Report Assessment/Plan Admission Diagnosis Confusion, hyponatremia Admission Status: Inpatient Order (span 2 midnights) Reason for Inpatient Admission: Confusion, hyponatremia Assessment and Plan Confusion secondary to hyponatremia - Repeat BMP now and again at bedtime - Continue NS 125 mL/hr with goal increase in Na 1-0.5 per hr - MAT protocol - PT/OT referral - SCDs for DVT prophylaxis Concussion - Brain rest. Limit screen time and keep room dark - CT head negative Diabetes - Insulin sliding scale HTN - Continue to monitor - Restart home meds ADA SAN MD 01/27/23 1434: Review of Systems Constitutional: see HPI Assessment/Plan Assessment and Plan Patient 77-year-old male with a history of dementia, hypertension, BPH who presented to the emergency department after a fall due to confusion. He had been confused since yesterday but fell in the shower and hit his head per his . Apparently he fell again getting out of the shower but I am unsure if he hit his head at that time as well. Following that he quit talking and his brought him to the emergency department for evaluation. He is not on any blood thinners CT was done of his head which was negative for acute findings. CTA was done as well which was negative for large vessel occlusion. He remained aphasic in the emergency department but when Dr. Tyler showed up who he has known from work for a long time he was able to speak to him. He also was unwilling to follow commands but could move all 4 extremities. Labs revealed sodium 120. He was admitted to the ICU for correction. His altered mental status was likely multifactorial due to his dementia, hyponatremia, and head injury this morning likely resulting in a concussion. Will continue IV fluids with normal saline and check frequent BMPs. He does have chronic hyponatremia with a baseline around 128. PT OT ordered. Start sliding scale insulin for his diabetes. Blood pressures are well-controlled currently so we will trend. Supervisory-Addendum Brief Verification & Attestation Participated in pt care: history, MDM, physical Personally performed: exam, history, MDM, supervision of care Care discussed with: Medical Student Procedures: n/a Results interpretation: Verified all documentation Verification and Attestation of Medical Student E/M Service A medical student performed and documented this service in my presence. I reviewed and verified all information documented by the medical student and made modifications to such information, when appropriate. I personally performed the physical exam and medical decision making. Ada San, Jan 27, 2023,14:29 KATHLEEN FLETCHER Jan 27, 2023 14:10 ADA SAN MD Jan 27, 2023 14:34
[2023-01-27 16:16] LABS: POTASSIUM 4.1 MMOL/L (3.6-5.0)
[2023-01-27 16:18] LABS: CALCIUM 8.8 MG/DL (8.5-10.1)
[2023-01-27 16:22] LABS: CREATININE SERUM 1.1 MG/DL (0.60-1.30)
[2023-01-27] MEDS: NS IV 1000 ML 1,000 ML IV SCH (16:54)
[2023-01-27] MEDS ORDERED: hydrALAZINE INJECTION 20 MG/ML VIAL IV PRN ×2 (17:15→17:45)
--- NOTE | 2023-01-27 18:02 | Tele-ICU Consult ---
History of Present Illness History of Present Illness Date Seen by Provider: Jan 27, 2023 Time Seen by Provider: 17:47 Date of Admission (Tele-ICU Physician , consultation as per request of PCP Service provided via interactive audio and video telecommunSoulstice [facility] E-CARE system to a patient admitted to ICU bed in [facility]. Available chart/ vitals / labs / Images reviewed H&P is from ER notes Patient's information available about PMH, Shx, Fhx allergy reviewed inEMR. ROS as per chart and RN report 77 y/o M with ?baseline dementia, HTN and chronic hyponatremia who presented to ED with c/o confusion and unstable gait. He is currently A&OX1. Underwent CT head which was negative and CT showed no LVO. Labs notable for sodium of 120 and mild RADHA. He was given IVF and now sodium is improving. A/P Hyponatremia: Improving Na initially 120 and patient confused. Started on NS @ 125 and improved to 124. Decreased rate to 50cc//hr -Bsln sodium also 127. Will cont to monitor. Avoid overcorrection given increased risk of ODS. HTN: Pt unsure of baseline meds: Will start on hydralazine 5mg IV for SBP > 180 Concern for stroke: CT head and CTA negative for acute intracranial findings. Patient with no focal deficits at this time. -No neurological intervention planned Lines : periph , (Central Line Necessity Reviewed) Damian: Nutrition: HH diet VTE Prophylaxis: scd Stress Ulcer Prophylaxis:- Plans in collaboration with bedside consultants and IM MDs. Discussed with RN to reach out if any questions or concerns A total of 25 minutes of CC time was devoted to this patient today, required to treat and/or prevent further deterioration of critical care condition ( as above ) Allergies and Home Medications Allergies Coded Allergies: No Known Drug Allergies (Unverified , 04/29/14) Past Medical/Social/Family Hx Patient Social History Marrital Status: Tobacco Use?: No Smoking Status: Never a Smoker Smokeless Tobacco Frequency: Never a User Use of E-Cig and/or Vaping dev: No Substance use?: No Alcohol Use?: Yes Alcohol type: Wine Alcohol Frequency: Rarely Pt stated abuse/neglect: No Immunizations Up To Date Influenza Vaccine Up-to-Date: No; Not Current Date of Pneumonia Vaccine: Jan 01, 2019 Current Status Advance Directives: No Communicates: Verbally Primary Language: Korean Preferred Spoken Language: Korean Is interpretation needed?: No Implanted or Applied Medical D: None Review of Systems Constitutional: no symptoms reported Focused Exam Height, Weight, BMI Height: 5'9.00" Weight: 160lbs. oz. 72.456621dc; 24.93 BMI Method:Stated Exam Exam Patient acknowledged, consented, and participated in this virtual visit which was conducted using real time audio/video Vital Signs Date Time Temp Pulse Resp B/P (MAP) Pulse Ox O2 Delivery O2 Flow Rate FiO2 01/27/23 16:54 37.2 01/27/23 16:00 98 Room Air 01/27/23 16:00 83 11 163/83 (109) 98 Room Air 01/27/23 15:00 85 11 164/81 (108) 98 Room Air 01/27/23 14:00 88 21 148/87 (107) 98 Room Air 01/27/23 13:55 36.6 75 98 21 01/27/23 13:45 83 12 173/86 (115) 97 Room Air 01/27/23 13:30 80 11 163/89 (113) 98 Room Air 01/27/23 13:15 75 11 158/92 (114) 98 Room Air 01/27/23 13:09 36.2 01/27/23 13:00 73 11 177/95 (122) 98 Room Air 01/27/23 12:55 73 12 172/96 96 Room Air 01/27/23 12:53 75 01/27/23 10:15 36.6 58 18 158/87 (110) 99 Room Air Height & Weight Height: 5'9.00" Weight: 160lbs. oz. 72.818895iy; 24.93 BMI Method:Stated General Appearance: No Apparent Distress, WD/WN HEENT: TMs Normal, Normal ENT Inspection, Pharynx Normal Neck: Normal Inspection, Non Tender Respiratory: Chest Non Tender, No Accessory Muscle Use, No Respiratory Distress, Crackles Cardiovascular: Regular Rate, Rhythm, No Murmur, Normal Peripheral Pulses Capillary Refill: Less Than 3 Seconds Extremity: Normal Capillary Refill, Normal Inspection, No Calf Tenderness Neurologic/Psychiatric: No Oriented x3; Disoriented Skin: Normal Color, Warm/Dry Results Lab Laboratory Tests 01/27/23 11:05 01/27/23 15:45 Assessment/Plan Assessment/Plan . SHEBA GONZALES MD Jan 27, 2023 18:02
[2023-01-27 20:34] LABS: CALCIUM 8.8 MG/DL (8.5-10.1)
[2023-01-27 20:39] LABS: CREATININE SERUM 1.06 MG/DL (0.60-1.30)
[2023-01-27 20:47] LABS: POTASSIUM 4.5 MMOL/L (3.6-5.0)
[2023-01-28 00:28] LABS: CALCIUM 8.9 MG/DL (8.5-10.1); CREATININE SERUM 0.98 MG/DL (0.60-1.30); POTASSIUM 3.9 MMOL/L (3.6-5.0)
[2023-01-28 04:45] LABS: HEMATOCRIT 38 % (40-54); HEMOGLOBIN 13.8 g/dL (13.3-17.7); MEAN CORPUSCULAR HEMOGLOBIN 31 pg (25-34); MEAN CORPUSCULAR HGB CONC 36 g/dL (32-36); MEAN CORPUSCULAR VOLUME 87 fL (80-99); MEAN PLATELET VOLUME 9.9 fL (9.0-12.2); PLATELET COUNT 204 10^3/uL (130-400)
[2023-01-28 05:14] LABS: CALCIUM 8.8 MG/DL (8.5-10.1); CREATININE SERUM 0.95 MG/DL (0.60-1.30); POTASSIUM 3.8 MMOL/L (3.6-5.0)
[2023-01-28] MEDS: NS IV 1000 ML 1,000 ML IV SCH ×2 (05:51→22:30)
[2023-01-28] MEDS ORDERED: NS IV 500 ML 500 ML IV PRN (07:00)
--- NOTE | 2023-01-28 07:41 | Physical Therapy Evaluation ---
PT Evaluation-General Medical Diagnosis Admission Date Jan 27, 2023 at 12:51 Medical Diagnosis: hyponatremia/confusion Onset Date: Jan 27, 2023 Therapy Diagnosis Therapy Diagnosis: debility Height/Weight Height (Feet): 5 Height (Inches): 9.00 Weight (Pounds): 160 Precautions Precautions/Isolations: Fall Prevention, Standard Precautions Referral Physician: Jaswinder Reason for Referral: Evaluation/Treatment Medical History Pertinent Medical History: DM, Dementia, HTN Current History EMS secondary to falls and confusion Reviewed History: Yes Social History Home: Apartment Current Living Status: Spouse Prior Prior Level of Function SCALE: Activities may be completed with or without assistive devices. 9-Ygarzrbcmz-noiabdx completes the activity by him/herself with no assistance from a helper. 5-Set-up or Clean-up Assistance-helper sets up or cleans up; patient completes activity. [place] assists only prior to or following the activity. 4-Supervision or Touching Assistance-helper provides verbal cues and/or touching/steadying and/or contact guard assistance as patient completes activity. Assistance may be provided throughout the activity or intermittently. 3-Partial/Moderate Assistance-helper does LESS THAN HALF the effort. [place] lifts, holds or supports trunk or limbs, but provides less than half the effort. 2-Substantial/Maximal Assistance-helper does MORE THAN HALF the effort. [place] lifts or holds trunk or limbs and provides more than half the effort. 3-Dqpidqwts-vpsklt does ALL the effort. Patient does none of the effort to complete the activity. Or, the assistance of 2 or more helpers is required for the patient to complete the activity. If activity was not attempted, code reason: 7-Patient Refused. 9-Not Applicable-not attempted and the patient did not perform the activity before the current illness, exacerbation or injury. 10-Not Attempted due to Environmental Limitations-(lack of equipment, weather restraints, etc.). 88-Not Attempted due to Medical Conditions or Safety Concerns. Bed Mobility: 6 Transfers (B,C,W/C): 6 Gait: 6 Stairs: 6 Indoor Mobility (Ambulation): Independent Stairs: Independent Prior Devices Use: None PT Evaluation-Current Subjective Patient agrees to PT. Spouse present and very attentive. Objective Patient Orientation: Person, Place ROM/Strength ROM Lower Extremities bilateral LE WFL Strength Lower Extremities 4+/5 grossly bilateral LE all planes Integumentary/Posture Bowel Incontinence: No Bladder Incontinence: No Posture WFL Neuromuscular (Tone, Coordination, Reflexes) grossly intact Sensory Vision: Functional Hearing: Functional Transfers Lying to Sitting/Side of Bed(Q: 6 Sit to Stand (QC): 6 Chair/Szc-wf-[place] Xfer(QC): 6 Gait Mode of Locomotion: Walk Anticipated Mode of Locomotion: Walk Walk 10 feet (QC): 6 Walk 50 ft with 2 Turns(QC): 6 Walk 150 ft (QC): 6 Distance: 375' Gait Assistive Device: None Comments/Gait Description initially unsteady with self correct/improved with distance with no moriah LOB Balance Sitting Static: Normal Sitting Dynamic: Normal Standing Static: Normal Standing Dynamic: Normal Assessment/Needs Patient is currently at independent LOF with all gross motor skills and does not require skilled PT intervention at this time. Rehab Potential: Fair PT Plan Treatment/Plan Treatment Plan: Discontinue PT Treatment Duration: Jan 28, 2023 Frequency: 1 time per week Estimated Hrs Per Day: .25 hour per day Patient and/or Family Agrees t: Yes Time Time In: 720 Time Out: 735 DATE: Jan 28, 2023 Total Billed Treatment Time: 15 Total Billed Treatment 1 visit EVModC 15 min ENMA LOREDO PT Jan 28, 2023 07:41
[2023-01-28] MEDS: MAGNESIUM 1 GM/100 ML IVPB 100 ML IV SCH ×3 (07:50→10:11)
[2023-01-28] MEDS ORDERED: POTASSIUM CHLORIDE 20 MEQ TABLET PO ONE (08:00)
[2023-01-28 08:25] LABS: POTASSIUM 3.7 MMOL/L (3.6-5.0)
[2023-01-28 08:26] LABS: CALCIUM 8.5 MG/DL (8.5-10.1)
[2023-01-28 08:30] LABS: CREATININE SERUM 1.04 MG/DL (0.60-1.30)
--- NOTE | 2023-01-28 09:11 | Progress Note - Hospitalist ---
KATHLEEN FLETCHER 01/28/23 0911: Subjective HPI/CC On Admission Date Seen by Provider: Jan 28, 2023 Time Seen by Provider: 09:01 Pt is a 77 y/o male with a hx of mild dementia who presents to the ER with confusion. Pt is unable to provide a hx d/t confusion. His reports that he fell in the shower today and hit his head. He appeared confused afterwards but was able to keep talking. Pt fell again and was aphasic since then until he came to the ER. In ER, unable to answer questions, listen to commands. states that he recently had his metroprolol dose decreased from 50 to 25 mg PO/d for his HTN. Pt is not on any blood thinners. states that he does have a hx of hyponatremia with baseline 127-129. Subjective/Events-last exam Pt is doing better than yesterday and is more alert. He is responding to commands and answering questions which is an improvement from yesterday. Pt is still very confused and his reports that he is around 50% compared to baseline. His states that lately he has been struggling more with his short term memory prior to his hospital admission and may have underlying dementia. Objective Exam Vital Signs Vital Signs Date Time Temp Pulse Resp B/P (MAP) Pulse Ox O2 Delivery O2 Flow Rate FiO2 01/28/23 07:57 36.8 01/28/23 07:00 78 01/28/23 06:00 14 98 Room Air 01/27/23 13:55 21 Capillary Refill : Less Than 3 Seconds General Appearance: No Apparent Distress, WD/WN HEENT: PERRL/EOMI, Normal ENT Inspection Neck: Normal Inspection, Non Tender, Supple Respiratory: Chest Non Tender, Lungs Clear, Normal Breath Sounds, No Accessory Muscle Use, No Respiratory Distress Cardiovascular: Regular Rate, Rhythm, No JVD, No Murmur Gastrointestinal: Normal Bowel Sounds, Non Tender, Soft Extremity: Normal Inspection, Non Tender, No Calf Tenderness, No Pedal Edema Neurologic/Psychiatric: Alert, No Motor/Sensory Deficits, Normal Mood/Affect Skin: Normal Color, Warm/Dry Lymphatic: No Adenopathy Results/Procedures Lab Laboratory Tests 01/27/23 11:05 01/27/23 15:45 01/27/23 20:16 01/27/23 23:56 01/28/23 04:05 01/28/23 08:05 Patient resulted labs reviewed. Imaging: Reviewed Imaging Report Assessment/Plan Assessment and Plan Assess & Plan/Chief Complaint Confusion secondary to hyponatremia - Repeat BMP - Continue NS 75 mL/hr - Baseline Na is 127-129 - MAT protocol - PT/OT - SCDs for DVT prophylaxis Concussion - Brain rest. Limit screen time and keep room dark Diabetes - Insulin sliding scale HTN - Continue to monitor - IV hydralazine available is systolic BP > 180 DANE SAN MD 01/28/23 1515: Assessment/Plan Assessment and Plan Assess & Plan/Chief Complaint Pt doing much better today. reports not yet back to baseline but about 50% to baseline and much better than yesterday. Na improving. Will transfer to 4th. Supervisory-Addendum Brief Verification & Attestation Participated in pt care: history, MDM, physical Personally performed: exam, history, MDM, supervision of care Care discussed with: Medical Student Procedures: n/a Results interpretation: Verified all documentation Verification and Attestation of Medical Student E/M Service A medical student performed and documented this service in my presence. I reviewed and verified all information documented by the medical student and made modifications to such information, when appropriate. I personally performed the physical exam and medical decision making. Dane San, Jan 28, 2023,15:14 KATHLEEN FLETCHER Jan 28, 2023 09:11 DANE SAN MD Jan 28, 2023 15:15
--- NOTE | 2023-01-28 09:41 | Tele-ICU Progress Note ---
Subjective Date Seen by a Provider: Jan 28, 2023 Time Seen by a Provider: 09:41 Subjective/Events-last exam (Tele-ICU Physician , Progress Note ) Service provided via interactive audio and video telecommunications E-CARE system to a patient admitted to ICU bed in [facility]. Patient is seen today due to persistent need of ICU care Available chart/ vitals / labs / Images reviewed Video assessment done using teleICU camera, rest of exam as per RN Discussed with RN Events overnight : Afebrile hemodynamically stable Respiratory - I/O = Drips: Pressors- no Hospital course: (01-27) 77 y/o M - s/p Mechanical Fall - Now Aphasic - Hyponatremia - CTH = No acute changes, A/P A/P Hyponatremia: Improving Na initially 120 and patient confused. now NA 125 ( 24 h latter ) less cofused NS to 80cc//hr - follow HTN: Pt unsure of baseline meds: Will start on hydralazine 5mg IV for SBP > 180 ( till sure there is no need to f/up for possible CVA ) Confusion - ? baseline - most likely due to hyponatremia -Concern for stroke: CT head and CTA negative for acute intracranial findings. Patient with no focal deficits at this time. -No neurological intervention planned- ? need additiona images - as per PCP Diabetes - Insulin sliding scale Lines : periph , (Central Line Necessity Reviewed) Damian: Nutrition: HH diet VTE Prophylaxis: scd Stress Ulcer Prophylaxis:- Plans in collaboration with bedside consultants and IM MDs. Discussed with RN to reach out if any questions or concerns Case and care daily discussed on multidisciplinary rounds ( RN, PharmD, Supervisor [employer] , Respiratory Therapy, hot tamale worker ) A total of 25 minutes of critical care time was devoted to this patient today, required to treat and/or prevent further deterioration of critical care con dition ( as above ) . I am remotely monitoring this patient from another state. I am unable to do the bedside exam, and history/physical and pertinent information is taken from other notes in the computer and bedside staff. Sepsis Event Evaluation Height, Weight, BMI Height: 5'9.00" Weight: 160lbs. oz. [id number]; 25.56 BMI Method:Stated Exam Exam Patient acknowledged, consented, and participated in this virtual visit which was conducted using real time audio/video Vital Signs Date Time Temp Pulse Resp B/P (MAP) Pulse Ox O2 Delivery O2 Flow Rate FiO2 01/28/23 09:00 94 12 176/94 (121) 98 Room Air 01/28/23 08:00 78 12 186/99 (128) 98 Room Air 01/28/23 07:57 36.8 01/28/23 07:00 78 01/28/23 07:00 78 10 174/92 (119) 96 Room Air 01/28/23 06:00 82 14 168/87 (114) 98 Room Air 01/28/23 05:00 66 15 134/78 (96) 96 Room Air 01/28/23 04:00 84 16 156/81 (106) 97 Room Air 01/28/23 04:00 98 Room Air 01/28/23 03:06 82 11 157/89 (111) 98 Room Air 01/28/23 02:10 83 14 169/96 (120) 97 Room Air 01/28/23 01:05 83 8 170/93 (118) 97 Room Air 01/28/23 01:00 96 01/28/23 00:00 97 Room Air 01/28/23 00:00 83 9 182/95 (124) 96 Room Air 01/27/23 23:00 84 187/94 (125) 97 Room Air 01/27/23 22:00 86 25 97 Room Air 01/27/23 21:04 83 19 177/87 (117) 98 Room Air 01/27/23 20:00 98 Room Air 01/27/23 20:00 84 11 153/81 (105) 98 Room Air 01/27/23 19:30 86 9 180/95 (123) 98 Room Air 01/27/23 19:24 37.2 Room Air 01/27/23 19:00 82 01/27/23 19:00 82 12 179/92 (121) 98 Room Air 01/27/23 18:00 84 9 177/96 (123) 98 Room Air 01/27/23 17:00 81 11 170/93 (118) 98 Room Air 01/27/23 16:54 37.2 01/27/23 16:00 98 Room Air 01/27/23 16:00 83 11 163/83 (109) 98 Room Air 01/27/23 15:00 85 11 164/81 (108) 98 Room Air 01/27/23 14:00 88 21 148/87 (107) 98 Room Air 01/27/23 13:55 36.6 75 98 21 01/27/23 13:45 83 12 173/86 (115) 97 Room Air 01/27/23 13:30 80 11 163/89 (113) 98 Room Air 01/27/23 13:15 75 11 158/92 (114) 98 Room Air 01/27/23 13:09 36.2 01/27/23 13:00 73 11 177/95 (122) 98 Room Air 01/27/23 12:55 73 12 172/96 96 Room Air 01/27/23 12:53 75 01/27/23 10:15 36.6 58 18 158/87 (110) 99 Room Air I & O 01/28/23 07:00 Intake Total 1900 ml Output Total 2250 ml Balance -350 ml Height & Weight Height: 5'9.00" Weight: 160lbs. oz. 72.173336jf; 25.56 BMI Method:Stated General Appearance: No Apparent Distress, WD/WN HEENT: PERRL/EOMI, Normal ENT Inspection Neck: Normal Inspection, Non Tender, Supple Respiratory: Chest Non Tender, Lungs Clear, Normal Breath Sounds, No Accessory Muscle Use, No Respiratory Distress Cardiovascular: Regular Rate, Rhythm, No JVD, No Murmur Capillary Refill: Less Than 3 Seconds Extremity: Normal Inspection, Non Tender, No Calf Tenderness, No Pedal Edema Neurologic/Psychiatric: Alert, No Motor/Sensory Deficits, Normal Mood/Affect Skin: Normal Color, Warm/Dry Lymphatic: No Adenopathy Results Lab Laboratory Tests 01/27/23 11:05 01/27/23 15:45 01/27/23 20:16 01/27/23 23:56 01/28/23 04:05 01/28/23 08:05 Assessment/Plan Assessment/Plan 1 BRIAN GORE MD Jan 28, 2023 09:41
[2023-01-28] MEDS: inSUlin ASPART 1 UNIT/0.01 ML (PER UNIT) SC SCH ×3 (11:31→20:23)
[2023-01-28] MEDS ORDERED: EZET10TA83 PO (11:47)
[2023-01-28] MEDS ORDERED: METF-399 PO (11:47)
[2023-01-28] MEDS ORDERED: FLUT1BLS15 INH (11:47)
[2023-01-28] MEDS ORDERED: IPR14IN INH (11:47)
[2023-01-28] MEDS ORDERED: TMSL.4C PO (11:47)
[2023-01-28] MEDS ORDERED: IRBE150T23 PO (11:47)
[2023-01-28] MEDS ORDERED: BENZ100C18 PO (11:47)
[2023-01-28] MEDS ORDERED: TRIA1CAP84 PO (11:47)
[2023-01-28] MEDS ORDERED: LEVO5TAB28 PO (11:47)
[2023-01-28] MEDS ORDERED: SITA100T12 PO (11:47)
[2023-01-28] MEDS ORDERED: MTP25TSR PO (11:47)
[2023-01-28] MEDS ORDERED: MIRA25TA PO (11:51)
[2023-01-28] MEDS ORDERED: ONDA4TAB11 SL (11:57)
[2023-01-28 12:10] LABS: POTASSIUM 3.9 MMOL/L (3.6-5.0)
[2023-01-28 12:11] LABS: CALCIUM 8.6 MG/DL (8.5-10.1)
[2023-01-28 12:16] LABS: CREATININE SERUM 0.92 MG/DL (0.60-1.30)
--- NOTE | 2023-01-28 13:21 | Occ Therapy Progress Note ---
Therapy Progress Note Per PT patient has no OT needs indicated. DC OT CANDY SERVIN OT Jan 28, 2023 13:21
[2023-01-28 16:28] LABS: POTASSIUM 4.2 MMOL/L (3.6-5.0)
[2023-01-28 16:29] LABS: CALCIUM 9.2 MG/DL (8.5-10.1)
[2023-01-28 16:33] LABS: CREATININE SERUM 1.09 MG/DL (0.60-1.30)
[2023-01-28] MEDS ORDERED: BENZONATATE 100 MG CAPSULE PO PRN (17:30)
[2023-01-28] MEDS ORDERED: IPRATROPIUM INH SCH (17:30)
[2023-01-28 19:19] VITALS: BP 168/90
[2023-01-28 20:52] LABS: CALCIUM 9.1 MG/DL (8.5-10.1); CREATININE SERUM 1.23 MG/DL (0.60-1.30)
[2023-01-28] MEDS ORDERED: LORATADINE 10 MG TABLET PO SCH (21:00)
[2023-01-28] MEDS ORDERED: NON-FORMULARY MEDICATION 1 EA EA (Irbesartan 150 MG) PO SCH (21:00)
[2023-01-28] MEDS ORDERED: LEVOCETIRIZINE DIHYDROCHLORIDE 5 MG PO SCH (21:00)
[2023-01-28] MEDS ORDERED: TAMSULOSIN 0.4 MG (FLOMAX) CAP PO SCH (21:00)
[2023-01-28] MEDS ORDERED: LOSARTAN 50 MG TABLET PO SCH (21:00)
[2023-01-28] MEDS ORDERED: RT-IPRATROPIUM NEBS 0.5 MG/2.5 ML IH SCH (22:00)
[2023-01-29 00:23] LABS: CALCIUM 8.8 MG/DL (8.5-10.1); CREATININE SERUM 1.06 MG/DL (0.60-1.30); POTASSIUM 4.1 MMOL/L (3.6-5.0)
[2023-01-29 03:35] VITALS: BP 159/77
[2023-01-29 05:17] LABS: CALCIUM 8.6 MG/DL (8.5-10.1); CREATININE SERUM 1.12 MG/DL (0.60-1.30); MAGNESIUM 2.3 MG/DL (1.6-2.4); POTASSIUM 4.5 MMOL/L (3.6-5.0)
[2023-01-29] MEDS: inSUlin ASPART 1 UNIT/0.01 ML (PER UNIT) SC SCH ×2 (05:25→10:44)
[2023-01-29] MEDS ORDERED: POTASSIUM CL 10MEQ/50ML IVPB 50 ML IV SCH (06:00)
[2023-01-29] MEDS ORDERED: MAGNESIUM 1 GM/100 ML IVPB 100 ML IV SCH (06:00)
[2023-01-29] MEDS ORDERED: POTASSIUM CHLORIDE 20 MEQ TABLET PO SCH (06:00)
[2023-01-29 07:20] VITALS: BP 139/78
[2023-01-29] MEDS ORDERED: FLUTICASONE/VILANTEROL 200/25 MCG (14 DOSES) IH SCH (08:00)
[2023-01-29] MEDS ORDERED: TIOTROPIUM INH 4 GM (SPIRIVA Respimat) IH SCH (08:00)
[2023-01-29] MEDS ORDERED: MIRABEGRON 25 MG TABLET PO SCH (08:00)
[2023-01-29] MEDS ORDERED: LinaGLIPtin 5 MG TABLET PO SCH (09:00)
[2023-01-29] MEDS ORDERED: NON-FORMULARY MEDICATION 1 EA EA (Sitagliptin Phosphate (Januvia) 100 MG) PO SCH (09:00)
[2023-01-29] MEDS ORDERED: NON-FORMULARY MEDICATION 1 EA EA (Mirabegron (Myrbetriq) 25 MG) PO SCH (09:00)
[2023-01-29] MEDS ORDERED: NON-FORMULARY MEDICATION 1 EA EA (Fluticasone/Umeclidin/Vilanter (Trelegy Ellipta 200-62.5 INH SCH (09:00)
[2023-01-29] MEDS ORDERED: TRIAMTERENE/HCTZ 75-50 (MAXZIDE,DYAZIDE) TABLET PO SCH (09:00)
[2023-01-29] MEDS ORDERED: NON-FORMULARY MEDICATION 1 EA EA (Triamterene/Hydrochlorothiazid (Triamterene-Hctz 37.5-25 PO SCH (09:00)
[2023-01-29 11:56] VITALS: BP 180/98
--- NOTE | 2023-01-29 12:05 | Diagnostic Imaging Report ---
CLINICAL INDICATION: Patient having increased confusion. Rule out stroke. EXAM: MRI of the brain performed without IV contrast. Sequences include axial DWI, ADC map, axial T1, axial T2, axial FLAIR, axial gradient echo, sagittal T1. COMPARISON: MRI of the brain with and without contrast dated 01/06/2023.. FINDINGS: There is interval development of a 3 mm punctate area of elevated DWI signal and low ADC map signal involving the high posterior left frontal lobe region. There is no intracranial hemorrhage, or gross mass effect. There are multiple focal and mildly confluent areas of high T2 signal white matter changes seen throughout both cerebral hemispheres and periventricular regions and bridget, likely related to chronic small vessel ischemic disease and leukoaraiosis. 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 The brain parenchymal volume appears appropriate for patient's age. There is normal calderón-white matter distinction. There is no significant midline shift or herniation. Empty sella turcica is noted which is nonspecific. The visualized [place] of [place] vascular structures show no significant abnormality. There is no evidence of hydrocephalus. The basal cisterns are unremarkable. The skull, extracranial soft tissue, and orbits are unremarkable. There is minimal mucosal thickening involving the ethmoid sinus and both maxillary sinuses. Temporal bones show no significant abnormality. IMPRESSION: 1: There is interval development of a 3 mm area of acute small vessel ischemic disease involving the high parasagittal posterior left frontal region. 2: Otherwise, the remainder of the brain parenchyma is unremarkable. 3: There are age-related brain parenchymal changes including chronic small vessel ischemic disease and leukoaraiosis. Dictated by: Dictated on workstation # [id number]
[2023-01-29 13:07] VITALS: BP 153/85
--- NOTE | 2023-01-29 13:45 | D/C HH Face to Face Order ---
D/C Face to Face Orders Instructions for Patient [facility], Patient Instructions/FollowUp: Please continue to take your medications as written. Please follow up with your primary care doctor to follow up this hospital stay. Physician to follow Patient: Dr Murray Discharge Diet for Home: No Restrictions Patient Data-Allergies,Ht & Wt Patient Allergies: Coded Allergies: No Known Drug Allergies (Unverified , 04/29/14) Height (Feet): 5 Height (Inches): 9.00 Weight (Pounds): 160 Home Health Need/Face to Face Date of Face to Face: Jan 29, 2023 Clinical Findings: Instability I have seen Pt [id number]: Yes Discharged To: Home Diagnosis/Conditions: Dementia Patient is Homebound due to: CognItive deficits Homebound Status Due to the above stated illness, injury or surgical procedure (medical condition or diagnosis) and associated clinical findings, the patient is homebound because of his/her inability to leave home except with aid of a supportive device and/or person AND leaving the home requires a considerable and taxing effort or is medically contraindicated. Pt req the following assistanc: Aid of another person Home Health Nursing Orders Home Health Services Order: Nursing Services, Physical Therapy-Evaluate & Treat, Speech Language-Evaluate & Treat (Cognitive evaluation and therapy) Home Health Infusion Therapy Line Start Date: Jan 27, 2023 Therapy Orders Therapy Orders: Physical Therapy, PT to assess for OT Therapy Specific Orders: Eval assistive deivces, Teach enviro modifications/safety, Gait training, Increase strength/endurance Certify Stmt I certify that this patient is under my care and that I, a nurse practitioner or a physician; a financial services assistant working with me, had a face to face encounter that - meets the physician face to face encounter requirements with this patient as dated. DANE VALLADARES MD Jan 29, 2023 13:45
--- NOTE | 2023-01-29 14:49 | Discharge Summary ---
Diagnosis/Chief Complaint Date of Admission Jan 27, 2023 at 12:51 Date of Discharge 01/29/2023 Discharge Date: Jan 29, 2023 Discharge Time: 14:13 Admission Diagnosis Confusion, hyponatremia Primary Care Jose Murray MD Discharge Diagnosis Confusion, hyponatremia Discharge Summary Discharge Physical Exam Allergies: Coded Allergies: No Known Drug Allergies (Unverified , 04/29/14) Vitals & I&Os Vital Signs Date Time Temp Pulse Resp B/P (MAP) Pulse Ox O2 Delivery O2 Flow Rate FiO2 01/29/23 13:07 153/85 (107) 01/29/23 11:56 36.2 96 20 99 Room Air 01/28/23 23:05 2.00 01/27/23 13:55 21 General Appearance: No Apparent Distress, WD/WN, Other (very confused) HEENT: PERRL/EOMI, Normal ENT Inspection Respiratory: Chest Non Tender, Lungs Clear, Normal Breath Sounds, No Accessory Muscle Use, No Respiratory Distress Cardiovascular: Regular Rate, Rhythm, No Murmur, Normal Peripheral Pulses Gastrointestinal: Normal Bowel Sounds, Non Tender, Soft Extremity: Non Tender, No Calf Tenderness, No Pedal Edema Skin: Normal Color, Warm/Dry Neurologic/Psychiatric: Alert, No Motor/Sensory Deficits, Normal Mood/Affect, Disoriented Hospital Course Was the Problem List Reviewed?: Yes Pt is a 77 y/o male who presented to the ER 01/27/2023 with confusion and hyponatremia following 2 falls at home. He reportedly hit his head during the fall at least once. His gives much of his hx due to his confusion and mild dementia. Upon arrival in the ER, he was completely aphasic and would not answer questions. As his sodium was corrected, he started speaking more. His baseline sodium is 127-129. Denies any LOC, muscle weakness, or sensory loss. Always able to move all four limbs in response to stimuli. He got a noncontrast CT of the head, CT head and neck angio, and a head MRI which were all negative for any acute problems. While in the hospital, his BP remained high and he was given a few doses of hydralazine 5 mg IV to get it until 180 systolic. He remains fairly confused even after sodium was corrected and there is possibility of concussion and underlying dementia complicating his recovery. Will need close follow up with PCP to monitor sodium levels, BP, and discuss recovery as well as needed for PT/OT at home. Labs (last 24 hrs) Laboratory Tests 01/28/23 16:07: Sodium Level 129L, Potassium Level 4.2, Chloride Level 95L, Carbon Dioxide Level 22, Anion Gap 12, Blood Urea Nitrogen 10, Creatinine 1.09, Estimat Glomerular Filtration Rate 70, BUN/Creatinine Ratio 9, Glucose Level 160H, Calcium Level 9.2 01/28/23 16:41: Glucometer 150H 01/28/23 20:15: Glucometer 197H 01/28/23 20:18: Sodium Level 128L, Potassium Level 4.0, Chloride Level 95L, Carbon Dioxide Level 21, Anion Gap 12, Blood Urea Nitrogen 13, Creatinine 1.23, Estimat Glomerular Filtration Rate 60, BUN/Creatinine Ratio 11, Glucose Level 218H, Calcium Level 9.1 01/28/23 23:56: Sodium Level 129L, Potassium Level 4.1, Chloride Level 98, Carbon Dioxide Level 21, Anion Gap 10, Blood Urea Nitrogen 13, Creatinine 1.06, Estimat Glomerular Filtration Rate 72, BUN/Creatinine Ratio 12, Glucose Level 155H, Calcium Level 8.8 01/29/23 04:20: Sodium Level 131L, Potassium Level 4.5, Chloride Level 102, Carbon Dioxide Level 17L, Anion Gap 12, Blood Urea Nitrogen 13, Creatinine 1.12, Estimat Glomerular Filtration Rate 68, BUN/Creatinine Ratio 12, Glucose Level 149H, Calcium Level 8.6, White Blood Count 8.0, Red Blood Count 4.33, Hemoglobin 14.0, Hematocrit 38L, Mean Corpuscular Volume 87, Mean Corpuscular Hemoglobin 32, Mean Corpuscular Hemoglobin Concent 37H, Red Cell Distribution Width 12.1, Platelet Count 189, Mean Platelet Volume 10.0, Percent Immature Platelet Fraction 2.9, Magnesium Level 2.3 01/29/23 10:34: Glucometer 186H Microbiology 01/27/23 MRSA Screen - Final, Complete MRSA not isolated Patient resulted labs reviewed. Pending Labs Laboratory Tests 01/29/23 10:34: Glucometer 186 Imaging: Reviewed Imaging Report Discharge Home Medications: Active Scripts Active Reported Ondansetron Odt (Ondansetron) 4 Mg Tab.rapdis 4 Mg SL TID PRN Myrbetriq (Mirabegron) 25 Mg Tab.er.24h 25 Mg PO DAILY Irbesartan 150 Mg Tablet 150 Mg PO HS Zetia (Ezetimibe) 10 Mg Tablet 10 Mg PO HS LAST FILLED 09-16-2022 #90/ DAY SUPPLY Metoprolol Succinate 25 Mg Tab.er.24h 25 Mg PO HS Xyzal (Levocetirizine Dihydrochloride) 5 Mg Tablet 5 Mg PO HS Tessalon Perles (Benzonatate) 100 Mg Capsule 200 Mg PO Q8H PRN Januvia (Sitagliptin Phosphate) 100 Mg Tablet 100 Mg PO DAILY LAST FILLED 09-09-2022 #90/90 DAY SUPPLY Triamterene-Hctz 37.5-25 mg Cp (Triamterene/Hydrochlorothiazid) 37.5 Mg-25 Mg Capsule 1 Each PO DAILY Flomax (Tamsulosin HCl) 0.4 Mg Cap 0.4 Mg PO HS Metformin HCl 1,000 Mg Tablet 1,000 Mg PO BID Atrovent Hfa (Ipratropium [place]) 17 Mcg/Actuation Aers 2 Puff INH Q8H Trelegy Ellipta 200-62.5-25 (Fluticasone/Umeclidin/Vilanter) 200-62.5 Blst.w.dev 1 Puff INH DAILY Instructions to patient/family Please see electronic discharge instructions given to patient. KATHLEEN FLETCHER Jan 29, 2023 14:49
[2023-01-29] MEDS ORDERED: ASPI-999 PO (15:07)
[2023-01-29] MEDS ORDERED: ATOR10TA PO (15:07)
[2023-01-29] MEDS ORDERED: CLOP-31 PO (15:07)
[2023-01-29] MEDS ORDERED: ASPIRIN enteric coated 81MG TABLET PO NR (15:15)
[2023-01-29] MEDS ORDERED: CLOPIDOGREL 75 MG TABLET PO NR (15:15)
[2023-01-29 15:24] LABS: TRIGLYCERIDES 111 MG/DL (<150); VLDL CHOLESTEROL 22 MG/DL (5-40)
[2023-01-29 15:29] LABS: CHOLESTEROL 184 MG/DL (< 200)
[2023-01-29 15:30] LABS: HDL CHOLESTEROL 43 MG/DL (40-60)
--- NOTE | 2023-01-29 21:04 | Physician Query-Final Dx ---
YAMINI BREWER 01/29/232103: Final Diagnosis Give Final Diagnosis Please give Final Diagnosis The medical record reflects the following clinical evidence: Clinical Indicators: Na 120 on admission has improved to 131, Presented to ER with Confusion, GCS 13 on admission, did increase to 14, head CT "No acute intracranial" Risk Factor(s): Hyponatremia, Advanced age with "mild" Dementia, "As his sodium was corrected, he started speaking more." "...possibility of concussion and underlying dementia complicating his recovery" Treatment: CT Head, Lab monitoring, Metabolic encephalopathy, in addition to underlying dementia and possible concussion, present on admission, improving Other explanation of clinical findings Unable to determine (no explanation for clinical findings) Please clarify and document your clinical opinion in the progress notes and discharge summary including the definitive and/or presumptive diagnosis, (suspected or probable), related to the above clinical findings. Please include clinical findings supporting your diagnosis. Yamini Brewer, MSN, RN Clinical Polisher [place] yes [phone] DANE VALLADARES MD 01/30/23 1429: Final Diagnosis Give Final Diagnosis Metabolic encephalopathy, in addition to underlying dementia and possible concussion, present on admission, improving YAMINI BREWER Jan 29, 2023 21:04 DANE VALLADARES MD Jan 30, 2023 14:29
[2023-01-30] MEDS ORDERED: ASPIRIN enteric coated 81MG TABLET PO SCH (09:00)
[2023-01-30] MEDS ORDERED: CLOPIDOGREL 75 MG TABLET PO SCH (09:00)
== END 2023-01-29 15:25 | disposition home health service (06) | DRG 640 ==
LOC: EDUNIT# 09:58 → ER 09:59 → ICU 12:51 → 4TH 01-28 15:14
PROVIDERS: ADMIT Family Medicine; ATTEND Family Medicine
DX: E87.1 Hypo-osmolality and hyponatremia (principal); G93.41 Metabolic encephalopathy; N17.9 Acute kidney failure, unspecified; R47.01 Aphasia; F03.90 Unspecified dementia, unspecified severity, without behavioral disturbance, psychotic disturbance, mood disturbance, and anxiety; S06.0X0A Concussion without loss of consciousness, initial encounter; Y93.E1 Activity, personal bathing and showering; E11.9 Type 2 diabetes mellitus without complications; Z79.84 Long term (current) use of oral hypoglycemic drugs; I10 Essential (primary) hypertension; E78.00 Pure hypercholesterolemia, unspecified; Z79.899 Other long term (current) drug therapy; W18.30XA Fall on same level, unspecified, initial encounter; Y92.012 Bathroom of single-family (private) house as the place of occurrence of the external cause
CPT/HCPCS: 36415; 70450; 70496; 70498; 70551; 80048; 80053; 80061; 82947; 83735; 85025; 85027; 85610; 87081; 94640